=== PATIENT | female | born 1990 | race Caucasian/White ===

== ENCOUNTER 2017-10-05 12:32 | Emergency (ER) | payer OTHER ==
[~2017-10-05] VITALS: Ht 167.6 cm; Wt 77.6 kg
[~2017-10-05 12:32] MED LIST: AMOX500T PO; MACR100C PO; ZOFR4TAB3 SL
[2017-10-05 12:36] VITALS: BP 135/79; PULSE 99; RESP 16; TEMP 97.6; O2SAT 96
[2017-10-05] MEDS ORDERED: LORazepam 0.5 MG TAB PO ONE (14:00)
[2017-10-05] MEDS ORDERED: HYDR-3133 PO (14:07)
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
== END 2017-10-05 14:37 | disposition home or self-care (01) ==
LOC: PHED 12:32 → PHEFT 14:37
DX: F41.9 Anxiety disorder, unspecified (principal); F17.200 Nicotine dependence, unspecified, uncomplicated; Z88.8 Allergy status to other drugs, medicaments and biological substances; Z79.899 Other long term (current) drug therapy
CPT/HCPCS: 99283